=== PATIENT | female | born 1975 | race Caucasian/White ===

== ENCOUNTER 2017-10-22 17:22 | Emergency (ER) | payer MEDICAID ==
[~2017-10-22] VITALS: Ht 154.9 cm; Wt 86.5 kg
[2017-10-22 17:22] VITALS: BP 130/82
[~2017-10-22 17:22] MED LIST: CITA10TA8 PO; DOCU-131 PO; OXYC-302 PO; TRAM50TA2 PO
[2017-10-22] MEDS ORDERED: ACETAMINOPHEN 325 MG TABLET ONE (17:45)
[2017-10-22] MEDS ORDERED: ACETAMINOPHEN 325 MG TABLET PO ONE (18:00)
== END 2017-10-22 18:36 | disposition home or self-care (01) ==
LOC: ED 18:35
DX: G89.11 Acute pain due to trauma (principal); M25.561 Pain in right knee; M79.604 Pain in right leg; Z79.899 Other long term (current) drug therapy; F17.200 Nicotine dependence, unspecified, uncomplicated; F15.10 Other stimulant abuse, uncomplicated
CPT/HCPCS: 82962; 99284

== ENCOUNTER 2018-03-13 17:12 | Emergency (ER) | payer MEDICAID ==
[~2018-03-13] VITALS: Ht 154.9 cm; Wt 98.1 kg
[2018-03-13 18:25] VITALS: BP 127/81
== END 2018-03-13 18:41 | disposition home or self-care (01) ==
LOC: ED 18:24
DX: R05 Cough (principal); R09.89 Other specified symptoms and signs involving the circulatory and respiratory systems; Z72.0 Tobacco use
CPT/HCPCS: 71046; 93005; 99284